=== PATIENT | male | born 1950 | race Caucasian/White ===

== ENCOUNTER 2016-11-07 15:07 | Emergency (ER) | payer BC ==
[2016-11-07 15:11] VITALS: BMI 24.3
--- NOTE | 2016-11-07 15:16 | PDOC ---
History of Present Illness <Margarito Navas - Last Filed: 11/07/16 15:16> - General History Source: Patient Exam Limitations: No Limitations - History of Present Illness Initial Comments: 11/07/16 15:34 The patient is a 66-year-old man, accompanied by his , with a significant past medical history of hypertension, hypercholesterolemia and kidney stones who presents to the emergency department for left flank pain since yesterday. No trauma, strenuous activity. He states that his left flank pain is sharp in nature that radiates down his let groin, intermittent (only occurring upon ruination) with a rated 7/10 in severity without alleviating factors. He reports associated symptoms of dyusria. He reports he has a known kidney stones , as he experienced similar symptoms approximately 15 days ago and he underwent a CT which confirmed his kidney stones. Patent followed up with his Urologist, Dr. Samuel for which a cystoscopy was performed and was unsuccessful. Patient is unaware of the planning but presented to the ED for evaluation of his pain. No fever chills No cough, shortness of breath, chest pain, lightheadedness, dizziness No abdominal pain, nausea, vomiting, diarrhea, constipation No urinary frequency, testicular pain, penile discharge, hematuria. Allergies: No Known Drug allergies Past Surgical History: Umbilical hernia repair. Bypass. Social History: No tobacco, EtOH and recreational drug use. Urologist: Dr. Samuel <Radha Fried - Last Filed: 11/07/16 15:46> - General Chief Complaint: Pain, Acute Stated Complaint: BACK PAIN (KIDNEY) Time Seen by Provider: 11/07/16 15:15 Past History - Past Medical History Cardiac Disorders: Yes (bypass 2012) HTN: Yes Hypercholesterolemia: Yes Kidney Stones: Yes - Surgical History Cardiac Surgery: Yes (bypass) GI Surgery: Yes (hernia repair) - Psycho/Social/Smoking Cessation Hx Suicidal Ideation: No Smoking History: Never smoked Information on smoking cessation initiated: No Hx Alcohol Use: No Drug/Substance Use Hx: No Substance Use Type: None <Margarito Navas - Last Filed: 11/07/16 15:16> <Radha Fried - Last Filed: 11/07/16 15:46> - Past Medical History Allergies/Adverse Reactions: Allergies Allergy/AdvReac Type Severity Reaction Status Date / Time No Known Allergies Allergy Verified 11/07/16 15:11 Review of Systems - Review of Systems Able to Perform ROS?: Yes Comments:: 11/07/16 15:34 GENERAL/CONSTITUTIONAL: No fever or chills. No weakness. HEAD, EYES, EARS, NOSE AND THROAT: No change in vision. No ear pain or discharge. No sore throat. CARDIOVASCULAR: No chest pain or shortness of breath. RESPIRATORY: No cough, wheezing, or hemoptysis. GASTROINTESTINAL: No nausea, vomiting, diarrhea or constipation. GENITOURINARY: Yes: Left flank pain. Dysuria. No frequency, or change in urination. MUSCULOSKELETAL: No joint or muscle swelling or pain. No neck or back pain. SKIN: No rash NEUROLOGIC: No headache, vertigo, loss of consciousness, or change in strength/ sensation. ENDOCRINE: No increased thirst. No abnormal weight change. HEMATOLOGIC/LYMPHATIC: No anemia, easy bleeding, or history of blood clots. ALLERGIC/IMMUNOLOGIC: No hives or skin allergy. <Radha Fried - Last Filed: 11/07/16 15:46> *Physical Exam - Vital Signs Last Vital Signs Temp Pulse Resp BP Pulse Ox 97.8 F 62 18 160/76 97 11/07/16 15:09 11/07/16 15:09 11/07/16 15:09 11/07/16 15:09 11/07/16 15:09 <Margarito Navas - Last Filed: 11/07/16 15:16> - Vital Signs Last Vital Signs Temp Pulse Resp BP Pulse Ox 97.8 F 62 18 160/76 97 11/07/16 15:09 11/07/16 15:09 11/07/16 15:09 11/07/16 15:09 11/07/16 15:09 - Physical Exam Comments: 11/07/16 15:34 GENERAL: Awake, alert, and fully oriented, in no acute distress HEAD: No signs of trauma EYES: PERRLA, EOMI, sclera anicteric, conjunctiva clear ENT: Auricles normal inspection, hearing grossly normal, nares patent, oropharynx clear without exudates. Moist mucosa NECK: Normal ROM, supple, no lymphadenopathy, JVD, or masses LUNGS: Breath sounds equal, clear to auscultation bilaterally. No wheezes, and no crackles HEART: Regular rate and rhythm, normal S1 and S2, no murmurs, rubs or gallops ABDOMEN: Soft, nontender, normoactive bowel sounds. No guarding, no rebound. No masses EXTREMITIES: Normal range of motion, no edema. No clubbing or cyanosis. No cords, erythema, or tenderness NEUROLOGICAL: Cranial nerves II through XII grossly intact. Normal speech. <Radha Fried - Last Filed: 11/07/16 15:46> Medical Decision Making - Medical Decision Making 11/07/16 15:34 The patient is a 66-year-old man, accompanied by his , with a significant past medical history of hypertension, hypercholesterolemia and kidney stones who presents to the emergency department for left flank pain since yesterday. No trauma, strenuous activity. He states that his left flank pain is sharp in nature that radiates down his let groin, intermittent (only occurring upon ruination) with a rated 7/10 in severity without alleviating factors. He reports associated symptoms of dyusria. He reports he has a known kidney stones , as he experienced similar symptoms approximately 15 days ago and he underwent a CT which confirmed his kidney stones. Patent followed up with his Urologist, Dr. Samuel for which a cystoscopy was performed and was unsuccessful. Patient is unaware of the planning but presented to the ED for evaluation of his pain. PLAN: Labs, IV Fluids, Urinalysis, CT. <Radha Fried - Last Filed: 11/07/16 15:46> *DC/Admit/Observation/Transfer - Attestations Physician Attestion: 11/07/16 15:16 I, Dr. Margarito Navas, attest that this document has been prepared under my direction and personally reviewed by me in its entirety. I further attest, that it accurately reflects all work, treatment, procedures and medical decision -making performed by me. <Margarito Navas - Last Filed: 11/07/16 15:16> - Attestations Scribe Attestion: 11/07/16 15:34 Documentation prepared by Radha Fried, acting as biomedical instrument technician for Margarito Navas DO. <Radha Fried - Last Filed: 11/07/16 15:46> - Referrals Referrals: Elvis Colindres MD [Primary Care Provider] -
[2016-11-07] MEDS ORDERED: morphine CARPU-JECT 4 MG/1 ML DISP.SYRIN IVPUSH ONE (15:32)
[2016-11-07] MEDS ORDERED: KETOROLAC TROMETHAMINE 30 MG/1 ML VIAL IVPUSH ONE (15:32)
[2016-11-07] MEDS ORDERED: SODIUM CHLORIDE 1,000 ML IV STA (15:32)
[2016-11-07] MEDS ORDERED: KETOROLAC TROMETHAMINE 30 MG/1 ML VIAL ONE (16:05)
[2016-11-07] MEDS ORDERED: morphine CARPU-JECT 4 MG/1 ML DISP.SYRIN ONE (16:05)
[2016-11-07 16:09] LABS: BASOPHIL 0.9 % (0-2.0); MCH 30.1 pg (25.7-33.7); MCHC 33.5 g/dl (32.0-35.9); MEAN CELL VOLUME 90.1 fl (80-96); MEAN PLT VOLUME 8.8 fl (7.5-11.1); PLATELET COUNT 192 K/MM3 (134-434); WHITE BLOOD COUNT 6.7 K/mm3 (4.0-10.0)
[2016-11-07 16:10] LABS: URINE APPEARANCE CLEAR; URINE BILIRUBIN NEGATIVE (NEGATIVE); URINE BLOOD NEGATIVE (NEGATIVE); URINE COLOR LTYELLOW; URINE GLUCOSE (UA) NEGATIVE (NEGATIVE); URINE KETONE NEGATIVE (NEGATIVE); URINE LEUK ESTERASE NEGATIVE (NEGATIVE); URINE NITRITE NEGATIVE (NEGATIVE); URINE PROTEIN NEGATIVE (NEGATIVE); URINE UROBILINOGEN NEGATIVE mg/dL (0.2-1.0)
[2016-11-07 16:26] LABS: INR 1.08 (0.82-1.09); PROTHROMBIN TIME (PATIENT) 11.9 SEC (9.98-11.88)
[2016-11-07 16:37] LABS: ALBUMIN 3.7 g/dl (3.4-5.0); ALK PHOS 91 U/L (45-117); ANION GAP 7 (8-16); BILIRUBIN,TOTAL 0.4 mg/dL (0.2-1.0); CALCIUM 9.2 mg/dL (8.5-10.1); CO2 27 mmol/L (21-32); CREATININE 0.9 mg/dL (0.7-1.3); GLUCOSE,RANDOM 94 mg/dL (74-106); SGOT/AST 22 U/L (15-37); SGPT/ALT 29 U/L (12-78)
--- NOTE | 2016-11-07 18:32 | PDOC ---
*Physical Exam - Vital Signs Last Vital Signs Temp Pulse Resp BP Pulse Ox 97.8 F 62 18 160/76 97 11/07/16 15:09 11/07/16 15:09 11/07/16 15:09 11/07/16 15:09 11/07/16 15:09 ED Treatment Course - LABORATORY CBC & Chemistry Diagram: 11/07/16 16:00 11/07/16 16:00 - ADDITIONAL ORDERS Additional order review: Laboratory Results 11/07/16 11/07/16 11/07/16 16:00 16:00 16:00 INR 1.08 Sodium 142 Potassium 4.1 Chloride 108 H Carbon Dioxide 27 Anion Gap 7 L BUN 17 Creatinine 0.9 Creat Clearance w eGFR > 60 Random Glucose 94 Calcium 9.2 Total Bilirubin 0.4 AST 22 ALT 29 Alkaline Phosphatase 91 Total Protein 7.0 Albumin 3.7 Urine Color Ltyellow Urine Appearance Clear Urine pH 6.0 Urine Protein Negative Urine Glucose (UA) Negative Urine Ketones Negative Urine Blood Negative Urine Nitrite Negative Urine Bilirubin Negative Urine Urobilinogen Negative Ur Leukocyte Esterase Negative 11/07/16 16:00 RBC 4.79 MCV 90.1 MCHC 33.5 RDW 14.0 MPV 8.8 Neutrophils % 50.0 Lymphocytes % 34.3 Monocytes % 10.8 H Eosinophils % 4.0 Basophils % 0.9 - Medications Given in the ED: ED Medications Discontinued Medications Generic Name Dose Route Start Last Admin Trade Name Freq PRN Reason Stop Dose Admin Sodium Chloride 1,000 mls @ 1,000 mls/hr 11/07/16 15:32 11/07/16 16:10 Normal Saline - IV 11/07/16 16:31 1,000 mls/hr ASDIR STA Administration Ketorolac Tromethamine 30 mg 11/07/16 15:32 11/07/16 16:10 Toradol Injection - IVPUSH 11/07/16 15:33 30 mg ONCE ONE Administration Morphine Sulfate 4 mg 11/07/16 15:32 11/07/16 16:09 Morphine Injection - IVPUSH 11/07/16 15:33 4 mg ONCE ONE Administration Medical Decision Making - Medical Decision Making 11/07/16 18:29 Dr. Orlando Rae will see this patient on Tuesday morning. CAT scan did show 4.8 mm left UVJ stone w mild hydroureter -pt is able to urinate,hasno fever and UA is negative for UTI -discussed the labs w the pt. Labs were unremarkable plan pain meds eprescribed to his pharmacy and urology appt in 48 hours - *DC/Admit/Observation/Transfer Diagnosis at time of Disposition: Calculus of kidney, Hydroureter - Discharge Dispostion Disposition: HOME Condition at time of disposition: Stable - Referrals Referrals: Elvis Colindres MD [Primary Care Provider] - Jose Samuel MD [Staff Physician] - - Patient Instructions Printed Discharge Instructions: DI for Kidney Stones Additional Instructions: please see Dr Samuel in the office on Tuesday please picker feeder your medication at your pharmacy - Post Discharge Activity
[2016-11-07 18:58] VITALS: BP 154/80; PULSE 84; TEMP 98.7
== END 2016-11-07 18:58 | disposition home or self-care (01) ==
LOC: JER 15:07
PROC: 3E033NZ Introduction of Analgesics, Hypnotics, Sedatives into Peripheral Vein, Percutaneous Approach (ICD-10-PCS; principal; 2016-11-07)
PROC: 3E0333Z Introduction of Anti-inflammatory into Peripheral Vein, Percutaneous Approach (ICD-10-PCS; 2016-11-07)
DX: N13.2 Hydronephrosis with renal and ureteral calculous obstruction (principal); Z87.442 Personal history of urinary calculi; I10 Essential (primary) hypertension; E78.00 Pure hypercholesterolemia, unspecified; Z95.1 Presence of aortocoronary bypass graft
CPT/HCPCS: 36415; 74176-TC; 80053; 81003; 85025; 85610; 87086; 99283-25

== ENCOUNTER 2016-11-21 10:03 | Inpatient (IN) | payer BC, OTHER ==
[2016-11-21 10:07] VITALS: BMI 26.3
--- NOTE | 2016-11-21 10:33 | PDOC ---
History of Present Illness - General Chief Complaint: Pain, Acute Stated Complaint: BACK PAIN (STONES) Time Seen by Provider: 11/21/16 10:32 Exam Limitations: No Limitations - History of Present Illness Initial Comments: 11/21/16 11:28 66M with pmh of HTN, coronary disease status post CABG, kidney stones presents with persistent left flank pain. He was seen on 11/07/16 for the same reason and was found to have a 6mm partially obstructive stone in the left distal ureter. He was discharged and followed up on Tuesday with Dr. Orlando Rae performed a bedside ultrasound and told him to come back to the ED is pain reoccured. 11/21/16 11:54 Past History - Past Medical History Allergies/Adverse Reactions: Allergies Allergy/AdvReac Type Severity Reaction Status Date / Time No Known Allergies Allergy Verified 11/21/16 10:07 Home Medications: Ambulatory Orders Amlodipine Besylate [Norvasc -] 5 mg PO DAILY 11/07/16 Aspirin [Aspirin EC] 81 mg PO DAILY 11/07/16 Atorvastatin Ca [Lipitor] 40 mg PO HS 11/07/16 Ibuprofen [Motrin -] 600 mg PO TID PRN #21 tablet 11/07/16 Lisinopril [Prinivil] 20 mg PO BID 11/07/16 Metoprolol Tartrate 100 mg PO DAILY 11/07/16 Oxycodone HCl/Acetaminophen [Percocet 5-325 mg Tablet] 1 tab PO Q6H #4 tablet MDD 4 11/07/16 Tamsulosin HCl [Flomax] 0.4 mg PO DAILY 11/07/16 Cardiac Disorders: Yes (bypass 2012) HTN: Yes Hypercholesterolemia: Yes Kidney Stones: Yes - Surgical History Cardiac Surgery: Yes (bypass) GI Surgery: Yes (hernia repair) - Psycho/Social/Smoking Cessation Hx Anxiety: No Suicidal Ideation: No Smoking History: Never smoked Hx Alcohol Use: No Drug/Substance Use Hx: No Substance Use Type: None Review of Systems - Review of Systems Constitutional: No: Chills, Diaphoresis, Fever HEENTM: No: Symptoms Reported Respiratory: No: Cough, Orthopnea, Shortness of Breath, Wheezing Cardiac (ROS): No: Symptoms Reported, Chest Pain, Edema, Irregular Heart Rate : Yes: See HPI *Physical Exam - Vital Signs Last Vital Signs Temp Pulse Resp BP Pulse Ox 97.6 F 57 L 20 152/80 96 11/21/16 10:04 11/21/16 10:04 11/21/16 10:04 11/21/16 10:04 11/21/16 10:04 - Physical Exam General Appearance: Yes: Nourished, Appropriately Dressed. No: Apparent Distress HEENT: positive: EOMI, [place]ERVA Respiratory/Chest: positive: Lungs Clear, Normal Breath Sounds. negative: Chest Tender, Respiratory Distress Cardiovascular: positive: Regular Rhythm, Regular Rate, S1, S2 Gastrointestinal/Abdominal: positive: Normal Bowel Sounds. negative: Tender Musculoskeletal: positive: CVA Tenderness (L). negative: CVA Tenderness (R) ED Treatment Course - LABORATORY CBC & Chemistry Diagram: 11/21/16 11:29 11/21/16 11:29 Medical Decision Making - Medical Decision Making 11/21/16 11:55 66M with pmh of HTN, coronary disease status post CABG, kidney stones presents with persistent left flank pain. Paged and talked to Dr. Orlando Rae who asked that the patient be admitted and kept npo at midnight for procedure in the morning.
--- NOTE | 2016-11-21 11:07 | PDOC ---
Attending Attestation - Resident Resident Name: WeeksConor - ED Attending Attestation I have performed the following: I have examined & evaluated the patient, The case was reviewed & discussed with the resident, I agree w/resident's findings & plan, Exceptions are as noted - HPI HPI: 11/21/16 11:04 66-year-old male with no past medical history of hypertension, coronary disease status post CABG, kidney stones presents with persistent left flank pain. Approximately 2 weeks ago, patient presented with left flank pain was diagnosed 5 mm kidney stone. However, patient continues persistent pain and dysuria since then with no improvement. Patient denies fevers or chills. He has been taking ibuprofen and oxycodone with minimal relief. Patient's family called Dr. Melissa Rae regard to the patient to the ED. - Physicial Exam PE: 11/21/16 11:07 GENERAL: Awake, alert, and fully oriented, in no acute distress. HEAD: No signs of trauma EYES: PERRLA, EOMI, sclera anicteric, conjunctiva clear ENT: Auricles normal inspection, hearing grossly normal, nares patent, oropharynx clear without exudates. NECK: Normal ROM, supple, no lymphadenopathy, JVD, or masses LUNGS: Breath sounds equal, clear to auscultation bilaterally. No wheezes, and no crackles HEART: Regular rate and rhythm, normal S1 and S2, no murmurs, rubs or gallops ABDOMEN: TTP LLQ. +Left sided CVA tenderness. Soft, normoactive bowel sounds. No guarding, no rebound. No masses EXTREMITIES: Normal range of motion, no edema. No clubbing or cyanosis. No cords, erythema, or tenderness NEUROLOGICAL: Cranial nerves II through XII grossly intact. Normal speech, normal gait SKIN: Warm, Dry, normal turgor, no rashes or lesions noted. - Medical Decision Making 11/21/16 11:06 Vital Signs Temp Pulse Resp BP Pulse Ox 97.6 F 57 L 20 152/80 96 11/21/16 10:04 11/21/16 10:04 11/21/16 10:04 11/21/16 10:04 11/21/16 10:04 Impression: Left sided kidney stone We need to draw bloods and urine analysis. We'll contact patient's urologist in regards to definitive plan i.e. potential lithotripsy and ureteral stent. Heart Score/ECG Review #1 ECG reviewed & interpreted by me at: 12:05 11/21/16 12:17 NSR 51, no std/dany, normal axis, normal intervals, TWI I, avL, V6, QTC 394 msec
[2016-11-21] MEDS ORDERED: SODIUM CHLORIDE 500 ML IV STA (11:11)
[2016-11-21 11:40] LABS: BASOPHIL 0.6 % (0-2.0); EOSINOPHIL 3.8 % (0-4.5); MCH 30.7 pg (25.7-33.7); MEAN CELL VOLUME 90.2 fl (80-96); MEAN PLT VOLUME 8.4 fl (7.5-11.1); NEUTROPHILS 56.7 % (42.8-82.8); PLATELET COUNT 197 K/MM3 (134-434)
[2016-11-21 12:06] LABS: ALBUMIN 3.5 g/dl (3.4-5.0); ANION GAP 7 (8-16); BILIRUBIN,TOTAL 0.4 mg/dL (0.2-1.0); CALCIUM 8.8 mg/dL (8.5-10.1); CO2 26 mmol/L (21-32); CREATININE 0.9 mg/dL (0.7-1.3); GLUCOSE,RANDOM 88 mg/dL (74-106); SGOT/AST 20 U/L (15-37); SGPT/ALT 27 U/L (12-78); TOT PROT 6.9 g/dl (6.4-8.2)
[2016-11-21 12:07] LABS: ALK PHOS 99 U/L (45-117)
[2016-11-21 13:20] LABS: URINE APPEARANCE CLEAR; URINE BILIRUBIN NEGATIVE (NEGATIVE); URINE BLOOD NEGATIVE (NEGATIVE); URINE COLOR LTYELLOW; URINE GLUCOSE (UA) NEGATIVE (NEGATIVE); URINE KETONE NEGATIVE (NEGATIVE); URINE LEUK ESTERASE NEGATIVE (NEGATIVE); URINE NITRITE NEGATIVE (NEGATIVE); URINE PROTEIN NEGATIVE (NEGATIVE); URINE UROBILINOGEN NEGATIVE mg/dL (0.2-1.0)
[2016-11-21] MEDS ORDERED: oxyCODONE HCL 5 MG TABLET PO PRN (13:27)
[2016-11-21] MEDS ORDERED: IBUPROFEN 600 MG TABLET (FP) PO PRN (13:27)
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
--- NOTE | 2016-11-21 13:28 | PDOC ---
*Physical Exam - Vital Signs Last Vital Signs Temp Pulse Resp BP Pulse Ox 97.6 F 57 L 20 152/80 100 11/21/16 10:04 11/21/16 10:04 11/21/16 10:04 11/21/16 10:04 11/21/16 10:40 ED Treatment Course - LABORATORY CBC & Chemistry Diagram: 11/21/16 11:29 11/21/16 11:29 - ADDITIONAL ORDERS Additional order review: Laboratory Results 11/21/16 11/21/16 13:00 11:29 Sodium 141 Potassium 4.3 Chloride 108 H Carbon Dioxide 26 Anion Gap 7 L BUN 16 Creatinine 0.9 Creat Clearance w eGFR > 60 Random Glucose 88 Calcium 8.8 Total Bilirubin 0.4 AST 20 ALT 27 Alkaline Phosphatase 99 Total Protein 6.9 Albumin 3.5 Urine Color Ltyellow Urine Appearance Clear Urine pH 6.0 Urine Protein Negative Urine Glucose (UA) Negative Urine Ketones Negative Urine Blood Negative Urine Nitrite Negative Urine Bilirubin Negative Urine Urobilinogen Negative Ur Leukocyte Esterase Negative 11/21/16 11:29 RBC 4.75 MCV 90.2 MCHC 34.0 RDW 14.0 MPV 8.4 Neutrophils % 56.7 Lymphocytes % 29.5 Monocytes % 9.4 Eosinophils % 3.8 Basophils % 0.6 - Medications Given in the ED: ED Medications Discontinued Medications Generic Name Dose Route Start Last Admin Trade Name Freq PRN Reason Stop Dose Admin Sodium Chloride 500 mls @ 500 mls/hr 11/21/16 11:11 11/21/16 11:00 Normal Saline - IV 11/21/16 12:10 500 mls/hr ASDIR STA Administration Medical Decision Making - Medical Decision Making 11/21/16 13:27 Dr. Weeks had discussed case with Dr. Avalos. Pt to be admitted for likely procedure. NPO after midnight. Case discussed with [facility] hospitalist. *DC/Admit/Observation/Transfer Diagnosis at time of Disposition: Kidney stone - Discharge Dispostion Condition at time of disposition: Stable Admit: Yes Decision to Admit order Date/Time: Decision to Admit Order Category Date Time Status Decision to Admit to Hospital Routine Admission 11/21/16 13:27 Ordered
[2016-11-21] MEDS ORDERED: POLYETHYLENE GLYCOL 3350 119 GM BTL PO ONE (13:35)
[2016-11-21] MEDS: SODIUM CHLORIDE 1,000 ML IV SCH ×2 (13:45→16:47)
[2016-11-21 15:06] LABS: INR 1.04 (0.82-1.09); PROTHROMBIN TIME (PATIENT) 11.5 SEC (9.98-11.88)
[2016-11-21 15:09] LABS: ACTIVATED PTT 29.9 SECONDS (26.9-34.4)
--- NOTE | 2016-11-21 16:13 | EKG ---
Test Reason : Blood Pressure : / mmHG Vent. Rate : 051 BPM Atrial Rate : 051 BPM P-R Int : 180 ms QRS Dur : 090 ms QT Int : 428 ms P-R-T Axes : 046 035 092 degrees QTc Int : 394 ms SINUS BRADYCARDIA NONSPECIFIC T WAVE ABNORMALITY ABNORMAL ECG NO PREVIOUS ECGS AVAILABLE CLINICAL CORRELATION IS RECOMMENDED AND REPEAT INDICATED. Confirmed by EMERITA LINTON MD ([id number] on 11/21/2016 4:13:13 PM Referred By: Confirmed By:EMERITA LINTON MD
[2016-11-21] MEDS ORDERED: PNEUMOC 13-VAL CONJ-DIP CRM/PF 0.5 ML DISP.SYRIN IM ONE (17:28)
--- NOTE | 2016-11-21 18:09 | PN ---
Teaching Attending Note Name of Resident: Jelani Cuello ATTENDING PHYSICIAN STATEMENT I saw and evaluated the patient. I reviewed the resident's note and discussed the case with the resident. I agree with the resident's findings and plan as documented. SUBJECTIVE:66yo M c/o L flank pain. was seen by Dr Samuel for L kidney stone on 11/07 in the ER was sent home and followed up in office last week where cystoscopy and abx were given. began to have L flank pain last night and was told by urologist to come to ER for intervention. denies CP, SOB, fever, chills , N/V/C/D OBJECTIVE: Last Vital Signs Temp Pulse Resp BP Pulse Ox 98.4 F 58 L 17 145/82 98 11/21/16 16:21 11/21/16 16:21 11/21/16 16:21 11/21/16 16:21 11/21/16 15:30 General NAd CV S1 S2 +murmur Lungs CTA B/L no wheezing/rales/rhonchi Abdomen soft NT/ND obese Extremities no pedal edema ASSESSMENT AND PLAN: 66yo m wtih PMH HTN, CAD s/p CABG and nephrolithasis presented with L flank pain 1. Obstructing L nephrolithasis- medicine admission. NPO tonight for intervention in AM by urology. start IVF, flomax and pain control 2. HTN-uncontrolled. as per spouse his BP is never controlled. states he took his meds this Am and pain has been controlled. will increase norvasc to 10mg in the AM. 3. CAD s/p CABG- no signs of acs. cont asa/statin 4. d/c planning tomorrow after procedure if no complications. d/w pt and spouse about plan. answered all questions. verbalized understanding and agreement
[2016-11-21] MEDS: LISINOPRIL 20 MG TABLET (FP) PO SCH (21:32)
[2016-11-21] MEDS ORDERED: ATORVASTATIN CA 40 MG TABLET (FP) PO SCH (22:00)
[2016-11-22] MEDS: SODIUM CHLORIDE 1,000 ML IV SCH (05:51)
[2016-11-22] MEDS ORDERED: TAMSULOSIN HCL 0.4 MG CAP.ER.24H (FP) PO SCH (08:30)
[2016-11-22 08:36] LABS: ANION GAP 8 (8-16); CALCIUM 8.4 mg/dL (8.5-10.1); CO2 27 mmol/L (21-32); CREATININE 0.8 mg/dL (0.7-1.3); GLUCOSE,RANDOM 95 mg/dL (74-106)
[2016-11-22] MEDS: LISINOPRIL 20 MG TABLET (FP) PO SCH (09:31)
[2016-11-22] MEDS ORDERED: amLODIPine BESYLATE 10 MG TABLET (FP) PO SCH (10:00)
[2016-11-22] MEDS ORDERED: METOPROLOL TARTRATE 50 MG TABLET (FP) PO SCH (10:00)
[2016-11-22] MEDS ORDERED: POLYETHYLENE GLYCOL 3350 119 GM BTL PO SCH (10:00)
[2016-11-22] MEDS ORDERED: ASPIRIN COATED 81 MG TABLET.EC PO SCH (10:00)
[2016-11-22] MEDS ORDERED: amLODIPine BESYLATE 5 MG TABLET (FP) PO SCH (10:00)
[2016-11-22] MEDS ORDERED: PROMETHAZINE HCL 25 MG/1 ML VIAL IVPUSH PRN (12:47)
[2016-11-22] MEDS ORDERED: ONDANSETRON 4 MG/2 ML VIAL IVPUSH PRN (12:47)
[2016-11-22] MEDS ORDERED: LEVOFLOXACIN 500 MG PREMIX BAG IVPB ONE (12:59)
[2016-11-22] MEDS ORDERED: LACTATED RINGERS SOLUTION 1,000 ML IV SCH (13:00)
[2016-11-22] MEDS ORDERED: DESFLURANE GAS 240 ML BOTTLE IH ONE (13:05)
--- NOTE | 2016-11-22 13:52 | CONSULT ---
Consult - text type - Consultation Consultation Note: CC: left renal colic with left hydroureteronephrosis secondary to obstructing distal left UVJ stone hpi: Patient with history of left sided renal colic with obstruction x 21+ days. Patient with intermittent nausea and vomiting with chills. Patient with poor appetite. PE afeb +left CVAT imp left renal colic left hydronephrosis plan cysto and stone basketing patient taken emergently to the OR discussed x 30 minutes
--- NOTE | 2016-11-22 13:55 | OP ---
Operative Note - Note: Operative Date: 11/22/16 Pre-Operative Diagnosis: left renal colic with left obstructing uretral stone with hydroureteronephrosis Operation: cystoscopy/left retrograde pyelogram/left ureteroscopic laser lithotripsy/left ureteroscopic stone basketing/left ureteral stent placement Findings: 5+mm obstructing left uvj stone with 3/5 hydroureteronephrosis Post-Operative Diagnosis: Same as Pre-op Surgeon: Jose Samuel Anesthesia: General
--- NOTE | 2016-11-22 14:05 | PN ---
Teaching Attending Note Name of Resident: Chacorta Bernard ATTENDING PHYSICIAN STATEMENT I saw and evaluated the patient. I reviewed the resident's note and discussed the case with the resident. I agree with the resident's findings and plan as documented. SUBJECTIVE:states pain is controlled. only have pain on urination. denies Cp, SOB, fevr, chills, N/V/C/D OBJECTIVE: Last Vital Signs Temp Pulse Resp BP Pulse Ox 99.4 F 68 18 162/89 94 L 11/22/16 13:53 11/22/16 13:53 11/22/16 13:53 11/22/16 13:53 11/22/16 13:53 General NAD Abdomen soft NT/ND obese ASSESSMENT AND PLAN: 66yo m wtih PMH HTN, CAD s/p CABG and nephrolithasis presented with L flank pain 1. Obstructing L nephrolithasis- NPO for lithotripsy and stent placement. further workup per urology. cont IVF, flomax and pain control 2. HTN-uncontrolled. likely component of pain leading to uncontrolled BP. norvasc increased. monitor 3. CAD s/p CABG- no signs of acs. cont asa/statin 4. dvt ppx- EAM
[2016-11-22] MEDS ORDERED: OXYCODONE/APAP 5/325MG COMBO TABLET PO SCH (14:33)
[2016-11-22] MEDS ORDERED: oxyCODONE HCL 5 MG TABLET PO PRN ×2 (14:33→14:39)
[2016-11-22] MEDS ORDERED: IBUPROFEN 600 MG TABLET (FP) PO PRN (14:33)
[2016-11-22] MEDS ORDERED: ACETAMINOPHEN 325 MG TABLET (FP) PO PRN (14:39)
[2016-11-22 17:05] VITALS: BP 133/63; PULSE 65; TEMP 98.1
--- NOTE | 2016-11-22 19:43 | DS ---
Physical Exam: LABS Laboratory Results - last 24 hr Selected Entries 11/21/16 11/21/16 11/22/16 10:04 22:00 14:10 Temperature Pulse Rate Blood Pressure 152/80 140/80 158/85 11/22/16 11/22/16 11/22/16 14:40 15:20 16:10 Temperature 98.1 F Pulse Rate 65 Blood Pressure 173/72 163/75 Laboratory Tests 11/21/16 11/21/16 11/22/16 11:29 11:29 06:40 WBC 7.0 Sodium 141 140 Potassium 4.3 3.8 Chloride 108 H 105 Anion Gap 7 L 8 BUN 16 13 Creatinine 0.9 0.8 AST 20 ALT 27 Cxr- no acute pathology EKG- sinus bradycardia HOSPITAL COURSE: Date of Admission:11/21/16 Date of Discharge: 11/22/16 66 yr old Amharic-speaking man with hx of HTN, CABG, and nephrolithiasis presented with intractable left flank pain radiating to his groin since 1 night prior to admission. Pain was aching, 8/10, worse with urination. Percocet 5/325 and ibuprofen 600mg did not relieve his pain. He also had been having urinary hesitancy and feelings of incomplete voiding for past 2 weeks.Initial onset of left flank pain was 1 month ago, he came to the ED 11/07, abd CT shows left hydroureter and 5mm distal left ureteral stone. 2 weeks ago he underwent a procedure with Dr. Samuel in his office (sounds like cystoscopy), he completed 7 days of antibiotics (doesn't recall name) and was told the stone would likely pass, but he has not noticed any stones in his urine. Patient was admitted for Nephrolithiasis and stent/lithotripsy. Patient underwent procedure with no complications and was d/c home. During his stay, his BP was uncontrolled. His norvasc was increased to 10 mg PO daily and patient was sent home on 10 mg. Minutes to complete discharge: 30 Discharge Summary Reason For Visit: KIDNEY STONE Condition: Improved - Instructions Diet, Activity, Other Instructions: You were in the hospital due to a kidney stone. Please follow up with your primary care provider within 1 week. Please follow up with a urologist (Dr. Samuel) within 1 week. INCREASE your Norvasc from 5 mg to 10 mg by mouth daily. A prescription has been sent for you if you do not have enough at home. Continue taking the following medication: Aspirin 81 mg by mouth daily Lipitor 40 mg by mouth at night Metoprolol 100 mg by mouth daily Flomax 0.4 mg by mouth daily Lisinopril 20 mg by mouth twice per day Motrin 600 mg by mouth three times per day as needed for pain Oxycodone/Acetaminophen 1 tab by mouth as needed for pain If you have chest pain, shortness of breath, or any new symptoms please come back to the hospital immediately Referrals: Jose Samuel MD [Staff Physician] - Kavon Cuevas [Primary Care Provider] - Disposition: HOME - Home Medications Comprehensive Discharge Medication List: Ambulatory Orders Aspirin [Aspirin EC] 81 mg PO DAILY 11/07/16 Atorvastatin Ca [Lipitor] 40 mg PO HS 11/07/16 Ibuprofen [Motrin -] 600 mg PO TID PRN #21 tablet 11/07/16 Lisinopril [Prinivil] 20 mg PO BID 11/07/16 Metoprolol Tartrate 100 mg PO DAILY 11/07/16 Oxycodone HCl/Acetaminophen [Percocet 5-325 mg Tablet] 1 tab PO Q6H #4 tablet MDD 4 11/07/16 Tamsulosin HCl [Flomax] 0.4 mg PO DAILY 11/07/16 Amlodipine Besylate [Norvasc -] 10 mg PO DAILY #30 tablet 11/22/16 Lidocaine 2% Jelly [Xylocaine 2% Jelly] 1 applic TP ONCE #1 applic 11/22/16 This patient is new to me today: Yes Date on this admission: 11/23/16 Emergency Visit: No Critical Care patient: No - Discharge Referral Referred to [facility] No
[2016-11-22] MEDS ORDERED: ATORVASTATIN CA 40 MG TABLET (FP) PO SCH (22:00)
[2016-11-22] MEDS ORDERED: LISINOPRIL 20 MG TABLET (FP) PO SCH (22:00)
[2016-11-23] MEDS ORDERED: TAMSULOSIN HCL 0.4 MG CAP.ER.24H (FP) PO SCH (08:30)
--- NOTE | 2016-11-23 08:33 | OP ---
DATE OF OPERATION: 11/22/2016 PREOPERATIVE DIAGNOSIS: Left renal colic with obstructing left ureteral stone. POSTOPERATIVE DIAGNOSIS: High-grade left ureteral obstruction secondary to 5-plus-mm stone. ATTENDING: Kiesha Church MD ANESTHESIA: General. PROCEDURE: Cystoscopy, left retrograde pyelogram, left ureteroscopic laser lithotripsy, left ureteroscopic stone basketing, and left ureteral stent placement. OPERATION: The patient was brought in the operating room and placed in the supine position on the operating room table. General anesthesia and antibiotics were administered. At this point, the patient was placed in the dorsal lithotomy position, prepped and draped in the usual sterile manner. The patient has a 21-plus-day history of intermittent nausea, vomiting, with persistent renal colic. The patient has been followed and has not passed a stone. The patient is brought in the operating room because of unrelenting pain and also risk of severe left renal damage secondary to obstruction. The patient understands all risks and benefits. The patient undergoes a cystoscopy which shows no evidence of stone within the bladder. The left ureteral orifice appears normal. A 3+ obstructive phosphate with 1 to 2+ bladder trabeculation is noted. A retrograde pyelogram shows a high-grade hydroureteronephrosis with a distal left ureteral filling defect. At this point, a wire was passed proximally. Ureteroscopy was performed and the stone was visualized. A Holmium laser is utilized for lithotripsy of the stone under direct vision. With this accomplished, the stone fragments are basketed under direct ureteroscopic visualization. All fragments are removed. At this point, a 6-Maldivian 24-cm left ureteral stent is placed utilizing the Seldinger technique with the aid of the cystoscope. No complication was noted. The patient tolerated the procedure very well. KIESHA CHURCH M.D. /[id number]
[2016-11-23] MEDS ORDERED: amLODIPine BESYLATE 10 MG TABLET (FP) PO SCH (10:00)
[2016-11-23] MEDS ORDERED: METOPROLOL TARTRATE 50 MG TABLET (FP) PO SCH (10:00)
--- NOTE | 2016-11-24 14:38 | PATH ---
Surgical Pathology Report Patient Name: BRAULIO CARLSON Med. Rec. #: [id number] /Age/Gender: 1950 (Age: 66) / M Account: [id number] Location: [facility] MED/SURG Taken: 11/22/2016 Received: 11/23/2016 Reported: 11/24/2016 Physicians: Jose Samuel Specimen(s) Received LEFT URETERAL STONES Clinical History Left ureteral stone, hydronephrosis Final Diagnosis STONES, LEFT URETER, EXTRACTION: CALCULI (GROSS EXAM). SPECIMEN SENT FOR CHEMICAL ANALYSIS. Electronically Signed Isaac Hickey M.D. Gross Description Received fresh labeled "left ureteral stones" are 3 black, irregular calculi ranging from 0.2-0.4 cm in greatest dimension. The specimen is sent for chemical analysis. 11/23/201611/23/2016
== END 2016-11-22 17:45 | disposition home or self-care (01) | DRG 669 ==
LOC: JER 10:03 → JERBED 13:27 → J7W 15:53
PROVIDERS: ADMIT Internal Medicine; ATTEND Internal Medicine
PROC: BT1FZZZ Fluoroscopy of Left Kidney, Ureter and Bladder (ICD-10-PCS; 2016-11-22)
PROC: 0TC78ZZ Extirpation of Matter from Left Ureter, Via Natural or Artificial Opening Endoscopic (ICD-10-PCS; principal; 2016-11-22 12:30)
PROC: 0T778DZ Dilation of Left Ureter with Intraluminal Device, Via Natural or Artificial Opening Endoscopic (ICD-10-PCS; 2016-11-22 12:30)
DX: N13.2 Hydronephrosis with renal and ureteral calculous obstruction (principal); I25.10 Atherosclerotic heart disease of native coronary artery without angina pectoris; I10 Essential (primary) hypertension; Z95.1 Presence of aortocoronary bypass graft; E78.00 Pure hypercholesterolemia, unspecified; Z96.652 Presence of left artificial knee joint; K59.09 Other constipation
CPT/HCPCS: 36415; 71010-TC; 76000-TC; 80048; 80053; 81003; 82360; 85025; 85610; 85730; 86850; 86900; 86901; 88300-TC; 90670; 93005; 93010; 94760; 99285-25

== ENCOUNTER 2017-02-28 06:43 | Day surgery (SDC) | payer BC ==
[2017-02-24 16:25] VITALS: BMI 27.9
[2017-02-28] MEDS ORDERED: LEVOFLOXACIN 500 MG PREMIX BAG IVPB ONE (09:12)
--- NOTE | 2017-02-28 09:43 | OP ---
Operative Note - Note: Operative Date: 02/28/17 Pre-Operative Diagnosis: left renal stone Operation: left eswl Findings: 4 mm upper pole and 6 mm lower pole left renal stones Post-Operative Diagnosis: Same as Pre-op Surgeon: Jose Samuel Anesthesia: Fractional Operative Report Dictated: Yes
[2017-02-28 10:25] VITALS: TEMP 97.6
[2017-02-28] MEDS ORDERED: ONDANSETRON 4 MG/2 ML VIAL IVPUSH PRN (10:29)
[2017-02-28] MEDS ORDERED: oxyCODONE HCL 5 MG TABLET PO PRN ×2 (10:29)
[2017-02-28] MEDS ORDERED: LACTATED RINGERS SOLUTION 1,000 ML IV SCH (10:30)
[2017-02-28 12:41] VITALS: BP 132/62; PULSE 66
--- NOTE | 2017-02-28 12:47 | OP ---
DATE OF OPERATION: 02/28/2017 PREOPERATIVE DIAGNOSIS: Left renal stone. POSTOPERATIVE DIAGNOSIS: Left renal stone. PROCEDURE: Left extracorporeal shock-wave lithotripsy. ATTENDING: Kiesha Church MD ANESTHESIA: Fractional. DESCRIPTION OF PROCEDURE: The patient was brought in the operating room and placed in supine position on the operating room table. Ultrasonography and fluoroscopy were performed. A 4-mm left upper pole stone and a 6-mm left lower pole stone were identified. The patient underwent extracorporeal shock-wave lithotripsy. Then 1500 impulses were administered to the 4-mm stone, and 1000 impulses were administered to the left lower pole stone at 18 J of power. No complications were noted. The patient tolerated the procedure very well. DISPOSITION: Patient to the recovery room. KIESHA CHURCH M.D. SE/[id number]
== END 2017-02-28 12:20 | disposition home or self-care (01) ==
LOC: JASU-SURG 06:43
PROVIDERS: ATTEND Urology
PROC: 0TF4XZZ Fragmentation in Left Kidney Pelvis, External Approach (ICD-10-PCS; principal; 2017-02-28 08:45)
DX: N20.0 Calculus of kidney (principal)
CPT/HCPCS: 94760